=== PATIENT | female | born 1945 | race Caucasian/White ===

== ENCOUNTER 2016-08-13 12:32 | Outpatient (CLI) ==
--- NOTE | 2016-08-18 08:40 | MAMMO ---
EXAM: Bilateral digital screening mammogram History: Screening Comparison: Bilateral mammogram 01/06/2011 Findings: MLO and CC views of bilateral breasts demonstrate predominately fatty replaced breast par enchyma. There are no dominant masses, no suspicious microcalcifications and no architectural disto rtions Impression: Stable negative mammogram. Recommend followup routine screening mammography in 1 year. BIRADS 1
== END 2016-08-13 12:33 | disposition home or self-care (01) ==
LOC: RAD 12:32
PROVIDERS: ATTEND Internal Medicine
DX: Z12.31 Encounter for screening mammogram for malignant neoplasm of breast (principal)

== ENCOUNTER 2017-01-15 15:26 | Outpatient (CLI) | END 2017-01-15 15:27 | disposition home or self-care (01) | LOC: LAB 15:26 | PROVIDERS: ATTEND Internal Medicine Endocrinology, Diabetes & Metabolism | DX: E04.2 Nontoxic multinodular goiter (principal) | CPT/HCPCS: 36415; 84439; 84443 ==

== ENCOUNTER 2017-05-04 12:58 | Outpatient (CLI) ==
--- NOTE | 2017-05-04 14:08 | DEXA ---
EXAM: BONE DENSITOMETRY HISTORY: Screening for osteoporosis. Post menopausal. FINDINGS: Exam of the lumbar spine demonstrated a total bone mineral density of 0.961 g/cm2. T score is -1.8. Age-matched Z score is -0.7. Exam of the hips revealed a total mean bone mineral density of 0.966 g/cm2. Mean hip T score: -0.3 Mean hip age-matched Z score: 0.8 FRAX WHO Fracture Risk Assessment. Ten year probability of fracture (%). Major Osteoporotic Fracture 14.5% Hip Fracture 3.2%. IMPRESSION: 1. Values presented indicate osteopenia of the spine. 2. Values presented indicate osteopenia of the hips.
== END 2017-05-04 12:59 | disposition home or self-care (01) ==
LOC: RAD 12:58
PROVIDERS: ATTEND Internal Medicine
DX: Z78.0 Asymptomatic menopausal state (principal)

== ENCOUNTER 2018-07-02 14:34 | Outpatient (CLI) ==
--- NOTE | 2018-07-02 17:04 | MRI ---
EXAM: MRI brain without and with IV contrast. DATE: 02 July 2018. HISTORY: Dizziness and headache. TECHNIQUE: Sagittal T1W pre and postcontrast, axial T2W, axial FLAIR, axial T1W pre and postcontrast , axial DWI, coronal T1W postcontrast, and coronal T2W GRE sequences of the brain were obtained using 1.5 Michela magnet. CONTRAST: Omniscan - 15 ml IV. COMPARISON: CT head 02/03/2018. FINDINGS: The ventricles, sylvian fissures, some frontal lobe sulci, and CSF spaces overlying the man perior vertex of the brain are somewhat prominent due to involutional change. No midline shift, mehdi iation or abnormal extra-axial fluid collection is apparent. No acute infarct, hemorrhage or enhanci ng neoplasm is identified. No abnormal contrast enhancement is identified in the brain, meninges or dura. Small, confluent rim of T2W/FLAIR hyperintensity is observed in the white matter abutting the anterior horn and body of each lateral ventricle. Small number of 2-4 mm diameter, T2W/FLAIR bright foci are present within the frontal alvarez radiata and subcortical white matter bilaterally. The gra y - white matter differentiation is normal. No migration or diverticulation abnormality is identifie d. The amygdala, hippocampus, and parahippocampal gyri are similar bilaterally. The 7th/8th cranial nerve complexes, cerebellopontine angles, brainstem, and visible cervical spinal cord are normal. T here is no cerebellar tonsillar ectopia. The pituitary gland is normal in size and signal. Corpus c allosum is normal in size and configuration. Flow voids are present in the major intracranial arteri es and in the dural venous sinuses. No aneurysm, AVM or dural venous sinus thrombosis is apparent. Appearance of the lens of each eye suggests prior cataract surgery. No other orbit abnormality is id entified. The mastoid air cells are unremarkable. There are minor mucosal thickening and small post erior air-fluid levels in each maxillary sinus. Several ethmoid air cells are opacified. Small lymp h nodes are displayed in the upper neck bilaterally. No neck mass or lymphadenopathy is detected. N o calvarial neoplasm or acute fracture is evident. IMPRESSIONS: 1. No acute infarct, hemorrhage, enhancing neoplasm or hydrocephalus. 2. Mild cerebral leukomalacia - likely small vessel disease. 3. Minor, benign bilateral basal ganglia mineral deposition. 4. Mild central > peripheral cerebral atrophy.
--- NOTE | 2018-07-05 09:47 | MAMMO ---
EXAM: Bilateral digital screening mammogram (2-D and 3-D) History: Screening Comparison: Bilateral mammogram 08/13/2016 Findings: MLO and CC views of bilateral breasts demonstrate predominately fatty replaced breast pare nchyma. CAD was reviewed by the radiologist. Tomosynthesis was performed. There are no dominant ma sses, no suspicious microcalcifications and no architectural distortions Impression: Stable negative mammogram. Recommend followup routine screening mammography in 1 year. BIRADS 1, negative
== END 2018-07-02 14:35 | disposition home or self-care (01) ==
LOC: RAD 14:34
PROVIDERS: ATTEND Internal Medicine
DX: Z12.31 Encounter for screening mammogram for malignant neoplasm of breast (principal); R42 Dizziness and giddiness; R51 Headache

== ENCOUNTER 2020-01-13 13:17 | Observation (INO) ==
[2020-01-13] MEDS ORDERED: SODIUM CHLORIDE 500 ML IV STA (13:43)
[2020-01-13 13:57] LABS: BASOPHILS % (AUTO) 0.6 % (0.0-3.0); EOSINOPHILS # (AUTO) 0.3 K/ul (0.0-0.7); EOSINOPHILS % (AUTO) 3.9 % (0.0-7.0); HEMATOCRIT 36.4 % (37.0-47.0); HEMOGLOBIN 11.9 g/dl (12.0-16.0); IMMATURE GRANULOCYTE # (AUTO) 0.1 (0.0-1.0); IMMATURE GRANULOCYTE % (AUTO) 1.2 % (0.0-5.0); LYMPHOCYTES # (AUTO) 1.7 K/uL (0.60-3.4); LYMPHOCYTES % (AUTO) 24.2 (10.0-50.0); MEAN CORPUSCULAR HGB CONC 32.7 (31.8-35.4); MEAN CORPUSCULAR VOLUME 92.6 fl (81.0-99.0); MONOCYTES # (AUTO) 0.5 K/uL (0.4-2.0); MONOCYTES % (AUTO) 6.7 (0-10); NEUTROPHILS # (AUTO) 4.3 K/ul (2.0-6.9); NEUTROPHILS % (AUTO) 63.4 % (42.2-75.2); PLATELET COUNT 164 10^3/uL (140-440); RDW COEFFICIENT OF VARIATION 12.7 % (11.6-14.8); RED BLOOD COUNT 3.93 10^6/ul (4.20-5.40); WHITE BLOOD COUNT 6.85 K/ul (4.6-10.2)
[2020-01-13 14:10] LABS: ALBUMIN 3.93 g/dL (3.5-5.0); ALKALINE PHOSPHATASE 123.1 U/L (53-141); ASPARTATE AMINO TRANSFERASE 39.6 U/L (14-36); BILIRUBIN,TOTAL 0.33 mg/dL (0.2-1.3); BLOOD UREA NITROGEN 11.3 mg/dL (7-17); CALCIUM 8.82 mg/dL (8.4-10.2); CARBON DIOXIDE 32.6 mmol/L (22-30.0); CHLORIDE 102.1 mmol/L (98-107); CREATININE 0.76 mg/dL (0.60-1.30); GLUCOSE 77.4 mg/dL (74-106); SODIUM 136.9 mmol/L (134.5-145); TOTAL PROTEIN 7.12 g/dL (6.3-8.2)
--- NOTE | 2020-01-13 14:33 | DI ---
EXAM: Frontal chest HISTORY: Weakness FINDINGS: Compared to 09/05/2019. Heart size remains within normal limits as does general mediastin al contour. There are scattered calcifications suggesting old granulomatous disease. No acute infil trates are seen. No vascular congestion. There is no consolidation, visible pleural fluid or pneumo thorax. Bones reveal no acute fracture. IMPRESSION: No acute cardiopulmonary process.
--- NOTE | 2020-01-13 14:41 | CT ---
Exam: CT of the brain without intravenous contrast. Comparison: MRI performed 09/15/2019. Reason for exam: Weakness. FINDINGS: No acute intracranial hemorrhage, mass effect, ventricular dilatation, or territorial infa rction. No extraaxial fluid collections are seen. Mucosal thickening in the ethmoid sinuses. No de pressed calvarial fracture. Impression: No acute intracranial hemorrhage, mass effect or ventricular dilatation. Mucosal thickening in the ethmoid sinuses consistent with sinus disease.
[2020-01-13 14:53] LABS: BILIRUBIN,URINE Negative (NEGATIVE); CLARITY,URINE Clear (CLEAR); COLOR,URINE Yellow (YELLOW); GLUCOSE, URINE (UA) Negative (NEGATIVE); KETONES,URINE Negative (NEGATIVE); LEUKOCYTE ESTERASE ,URINE Negative (NEGATIVE); NITRITE,URINE Negative (NEGATIVE); URINE, BLOOD Negative (NEGATIVE); UROBILINOGEN,URINE 0.2 (0.2)
[2020-01-13] MEDS ORDERED: TYLENOL PO STA (15:17)
--- NOTE | 2020-01-13 15:23 | ED.PDOC ---
General ED Provider: Dr. CORY SCHWARZ MD Chief Complaint: Weakness Stated Complaint: left forearm injury x 1 hr. Time Seen by Physician: 13:25 Mode of Arrival: Ambulance Information Source: Patient and EMT Exam Limitations: No limitations Primary Care Provider: GEORGI CONTEH Nursing and Triage Documentation Reviewed and Agree: Yes Does patient meet sepsis criteria?: No System Inflammatory Response Syndrome: Not Applicable Sepsis Protocol: For patient's 13 years and over: Temp is 96.8 and below OR 101 and greater Pulse >90 BPM Resp >20/minute Acutely Altered Mental Status Are patient's symptoms suggestive of a new infection, such as: -Pneumonia -Skin, Soft Tissue -Endocarditis -UTI -Bone, Joint Infection -Implantable Device -Acute Abdominal Infection -Wound Infection -Meningitis -Blood Stream Catheter Infection -Unknown Musculoskeletal Complaint Exam Upper Extremity Complaint/Exam Location of Pain: Reports Left and Forearm Mechanism of Injury: Reports Trauma Onset/Duration: 1 hr Symptoms Are: Still present Timing: Constant Episodes Lasting: Hours Initial Severity: Mild Current Severity: Mild Location: Reports Discrete Character: Reports Dull and Aching Aggravating: Reports Movement Alleviating: Reports Rest and Ice Upper Extremity Findings: Present Laceration (skin tear, approx 2.5 cm.) NV Bundle Intact Distal to Injury: Yes Compartment Syndrome Risk Factors: Absent Paralysis, Pallor, Pulselessness and Paresthesias Differential Diagnoses: Contusion and Laceration Review of Systems Review Of Systems Constitutional: Reports No symptoms Eyes: Reports No symptoms Ears, Nose, Mouth, Throat: Reports No symptoms Respiratory: Reports No symptoms Cardiac: Reports No symptoms GI: Reports No symptoms : Reports No symptoms Musculoskeletal: Reports Other (left forearm pain and superficial laceration.) Skin: Reports No symptoms Neurological: Reports No symptoms Endocrine: Reports No symptoms Hematologic/Lymphatic: Reports No symptoms All Other Systems: Reviewed and Negative COUNT INCLUDES THE [facility] Medical History Dyslipidemia Thyroid cyst (Unknown) Family History FATHER Lung cancer Aortic valve replaced Mother Thyroid disorder Social History Smoking and tobacco status: Former smoker Substance use type: does not use Female Reproductive History Menstrual Hx Hysterectomy: No Hx Tubal Ligation: No Physical Exam Physical Exam Appearance: Reports Well-appearing and No pain distress Ill-appearing: None Pain Distress: None Eyes: Reports LEANDRO, EOMI and Conjunctiva clear ENT: Reports Ears normal, Nose normal and Oropharynx normal Neck: Supple Respiratory: Reports Airway patent, Breath sounds clear and Breath sounds equal Cardiovascular: Reports RRR, Pulses normal, No rub and No murmur GI/: Reports Soft, Nontender, No masses, Bowel sounds normal and No Organomegaly Musculoskeletal: Reports Normal strength, ROM intact, No edema, No calf tenderness and Other (lateral left forearm superficial 2.5 cm skin tear + minimally swollen, with no acute deformity. minimally tender.) Skin: Reports Warm, Dry and Normal color Neurological: Reports Sensation intact, Motor intact, Reflexes intact, Cranial nerves intact, Alert and Oriented Psychiatric: Reports Affect appropriate and Mood appropriate Procedures Laceration/Wound Repair left forearm dressing to 2.5 cm skin tear of lateral left forearm: Wound Description: Irregular and Skin tear Wound Length (cm): 2.5 Wound Width: 0.1 cm Wound Depth: superficial Wound Explored: Clean Wound Irrigated: Yes Wound Prep: Saline Anesthesia: Other (not necessary) Wound Margins: Flaps aligned Wound Repaired With: Steri-strips Sterile Dressing Applied?: Yes Splint Applied?: No Sling Applied?: No Re-Evaluation Re-Evaluation Time of Re-Evaluation: 14:41 Status: Improved Vital Signs Stable: Yes Pain Level: 0 Appearance: NAD Lungs: Clear Skin: Warm and Dry Neuro: Alert and Oriented X3 CV: RRR Critical Care Note Critical Care Note Total Time (mins): 10 Course Course Hematology/Chemistry: 01/13/20 13:53 01/13/20 13:53 Orders, Labs, Meds: Lab Review 01/13/20 01/13/20 01/13/20 13:53 13:53 14:40 WBC 6.85 RBC 3.93 L Hgb 11.9 L Hct 36.4 L MCV 92.6 MCH 30.3 MCHC 32.7 RDW Coeff of Isra 12.7 Plt Count 164 Immature Gran % (Auto) 1.2 Neut % (Auto) 63.4 Lymph % (Auto) 24.2 [place] % (Auto) 6.7 Eos % (Auto) 3.9 Baso % (Auto) 0.6 Neut # (Auto) 4.3 Lymph # (Auto) 1.7 [place] # (Auto) 0.5 Eos # (Auto) 0.3 Baso # (Auto) 0.0 Immature Gran # (Auto) 0.1 Sodium 136.9 Potassium 4.10 Chloride 102.1 Carbon Dioxide 32.6 H Anion Gap 6.30 BUN 11.3 Creatinine 0.76 Estimated GFR (MDRD) 75.00 BUN/Creatinine Ratio 14.86 Glucose 77.4 Calcium 8.82 Total Bilirubin 0.33 AST 39.6 H ALT 33.0 Alkaline Phosphatase 123.1 Troponin I < 0.012 Total Protein 7.12 Albumin 3.93 Globulin 3.19 Albumin/Globulin Ratio 1.23 Urine Color Yellow Urine Clarity Clear Urine pH 7.0 Ur Specific [place] 1.015 Urine Protein Negative Urine Glucose (UA) Negative Urine Ketones Negative Urine Blood Negative Urine Nitrite Negative Urine Bilirubin Negative Urine Urobilinogen 0.2 Ur Leukocyte Esterase Negative Orders Category Date Time Status EKG-(ED ONLY) Stat CARDIO 01/13/20 13:43 Completed ED IV/MEDIPORT/POWERPORT .ONCE EMERGENCY 01/13/20 13:43 Active CBC W/ AUTO DIFF Stat LAB 01/13/20 13:53 Completed COMPREHENSIVE METABOLIC PANEL Stat LAB 01/13/20 13:53 Completed TROPONIN I Stat LAB 01/13/20 13:53 Completed UA [URINALYSIS C & S IF INDICATED] Stat LAB 01/13/20 14:40 Completed 0.9 % Sodium Chloride [Saline Flush] MEDS 01/13/20 13:43 Active 1 syr IVF PRN PRN Acetaminophen [Tylenol] MEDS 01/13/20 15:17 Discontinued 650 mg PO ONCE STA Sodium Chloride 0.9% [Sodium Chloride] 500 ml MEDS 01/13/20 13:43 Discontinued IV BOLUS CHEST, 1V AP ONLY Stat RADS 01/13/20 13:[address] HEAD W/O CONTRAST Stat RADS 01/13/20 13:43 Completed Medications Generic Name Dose Route Start Last Admin Trade Name Freq PRN Reason Stop Dose Admin Sodium Chloride 1 syr 01/13/20 13:43 01/13/20 14:57 0.9% Sodium Chloride 10 Ml Disp.Syrin IVF 1 syr PRN PRN Administration To flush IV Discontinued Medications Generic Name Dose Route Start Last Admin Trade Name Freq PRN Reason Stop Dose Admin Acetaminophen 650 mg 01/13/20 15:17 Acetaminophen 325 Mg Tablet PO 01/13/20 15:18 ONCE STA Sodium Chloride 500 mls @ 500 mls/hr 01/13/20 13:43 01/13/20 14:57 Sodium Chloride IV 01/13/20 14:42 500 mls/hr BOLUS STA Administration Vital Signs: Temp Pulse Resp BP Pulse Ox 01/13/20 13:20 97.6 F 60 18 153/61 H 99 Discharge Plan Discharge Prescriptions: No Action pantoprazole 40 mg Tablet,Delayed Release (Dr/Ec) 40 mg PO DAILY RF: 0 pravastatin 20 mg Tablet 20 mg PO 1700 RF: 0 azelastine 137 mcg (0.1 %) Aerosol,[place] 1 spray INTRANASAL BID RF: 0 albuterol sulfate [Ventolin HFA] 90 mcg/actuation Hfa Aerosol Inhaler 2 puff INHALATION Q4-6H PRN (Reason: Bronchospasm) RF: 0 loratadine 10 mg Tablet 10 mg PO DAILY PRN (Reason: Allergic Symptoms) RF: 0 escitalopram oxalate [Lexapro] 5 mg Tablet 5 mg PO DAILY RF: 0 meclizine 25 mg Tablet 25 mg PO TID PRN (Reason: DIZZINESS) Qty: 50 RF: 0 ED Provider: CORY SCHWARZ
[2020-01-13] MEDS ORDERED: TYLENOL PO PRN (16:20)
[2020-01-13] MEDS ORDERED: CLARITIN PO PRN (16:21)
[2020-01-13] MEDS ORDERED: ANTIVERT PO PRN (16:21)
[2020-01-13] MEDS ORDERED: VENTOLIN HFA (PER PUFF-WITH SPACER) IH PRN (16:21)
[2020-01-13] MEDS ORDERED: PRAVACHOL PO SCH (17:00)
[2020-01-13 17:06] VITALS: BMI 34.0
[2020-01-13] MEDS: SODIUM CHLORIDE 1,000 ML IV SCH (18:04)
[2020-01-13] MEDS: LOVENOX SUBCUT SCH (18:04)
[2020-01-13] MEDS ORDERED: ASTELIN 0.1% NAS SCH (21:00)
[2020-01-13] MEDS ORDERED: ASPIRIN CHEWABLE PO SCH (21:00)
[2020-01-13] MEDS: ATIVAN PO SCH (22:08)
[2020-01-14 04:36] LABS: BASOPHILS # (AUTO) 0.1 K/uL (0-0.2); BASOPHILS % (AUTO) 0.6 % (0.0-3.0); EOSINOPHILS # (AUTO) 0.4 K/ul (0.0-0.7); EOSINOPHILS % (AUTO) 4.6 % (0.0-7.0); HEMATOCRIT 33.2 % (37.0-47.0); HEMOGLOBIN 10.8 g/dl (12.0-16.0); IMMATURE GRANULOCYTE % (AUTO) 0.3 % (0.0-5.0); LYMPHOCYTES % (AUTO) 38.3 (10.0-50.0); MEAN CORPUSCULAR HGB CONC 32.5 (31.8-35.4); MEAN CORPUSCULAR VOLUME 92.5 fl (81.0-99.0); MONOCYTES # (AUTO) 0.5 K/uL (0.4-2.0); MONOCYTES % (AUTO) 6.8 (0-10); NEUTROPHILS # (AUTO) 3.9 K/ul (2.0-6.9); NEUTROPHILS % (AUTO) 49.4 % (42.2-75.2); PLATELET COUNT 141 10^3/uL (140-440); RDW COEFFICIENT OF VARIATION 12.7 % (11.6-14.8); RED BLOOD COUNT 3.59 10^6/ul (4.20-5.40); WHITE BLOOD COUNT 7.84 K/ul (4.6-10.2)
[2020-01-14 04:49] LABS: ALANINE AMINOTRANSFERASE 27.3 U/L (0-35); ALBUMIN 3.25 g/dL (3.5-5.0); ALKALINE PHOSPHATASE 122.3 U/L (53-141); ASPARTATE AMINO TRANSFERASE 30.9 U/L (14-36); BILIRUBIN,TOTAL 0.23 mg/dL (0.2-1.3); BLOOD UREA NITROGEN 14.1 mg/dL (7-17); CALCIUM 8.4 mg/dL (8.4-10.2); CARBON DIOXIDE 28.1 mmol/L (22-30.0); CHLORIDE 106.8 mmol/L (98-107); CREATININE 0.76 mg/dL (0.60-1.30); GLUCOSE 93.6 mg/dL (74-106); SODIUM 137.2 mmol/L (134.5-145); TOTAL PROTEIN 6.02 g/dL (6.3-8.2)
[2020-01-14 05:28] VITALS: TEMP 98.1
[2020-01-14] MEDS: SODIUM CHLORIDE 1,000 ML IV SCH (05:28)
[2020-01-14] MEDS ORDERED: PROTONIX PO SCH (06:30)
[2020-01-14] MEDS ORDERED: LEXAPRO PO SCH ×3 (09:00)
[2020-01-14] MEDS ORDERED: NON-FORMULARY MEDICATION (Escitalopram Oxalate [Lexapro] 5 mg Tablet) PO SCH (09:00)
[2020-01-14] MEDS ORDERED: ASTELIN 0.1% NAS SCH (09:00)
[2020-01-14] MEDS: ATIVAN PO SCH (09:03)
[2020-01-14] MEDS: LOVENOX SUBCUT SCH (09:04)
[2020-01-14 09:56] VITALS: BP 114/68
--- NOTE | 2020-01-17 14:45 | SSS ---
DATE OF SERVICE: 01/14/2020 REASON FOR ADMISSION: Generalized weakness of both lower extremities. HISTORY OF PRESENT ILLNESS: 74 year old white female came to the emergency room with inability to get up because of numbness and weakness. She says that she had similar type of spells couple of them in the past that turned out to be nothing remarkable but this time she wants to be checked out. The patient was seen and examined in the ER by the ET attending and the CT scan of the head, chest x-ray, EKG, electrolytes and CBC with differential all of them found to be practically within normal limits. REVIEW OF SYSTEMS: CONSTITUTIONAL: No night sweats. Fatigue and weakness for last couple of days. No fever or chills. HEENT: Eyes: No visual changes. No eye pain. No eye discharge. ENT: No runny nose. No epistaxis. No sinus pain. No sore throat. No odynophagia. No ear pain. No congestion. RESPIRATORY: No cough, no congestion. No hemoptysis. Mild shortness of breath. CARDIOVASCULAR: No angina symptoms. No CHF symptoms. No atypical chest pain for CAD. No palpitations. No orthopnea. GASTROINTESTINAL: No abdominal pain. No nausea or vomiting. No diarrhea or constipation. No hematemesis. No hematochezia. GENITOURINARY: No dysuria. No hematuria. No obstructive symptoms. No discharge. No pain. No significant abnormal bleeding. MUSCULOSKELETAL: No musculoskeletal pain. No joint swelling. NEUROLOGICAL: Awake, alert, oriented to time, place and person. No headache. No neck pain. No syncope. No seizures. No dizziness. Numbness in both lower extremities was transient, left but has weakness to upper extremities, no pain. PSYCHIATRIC: Not anxious. No depression. No suicidal thoughts. No homicidal thoughts. SKIN: No rash. No lesions. No wounds. ENDOCRINE: No unexplained weight loss. No weight gain. HEMATOLOGIC/LYMPHATIC: No anemia. No purpura. No petechiae. No prolonged or excessive bleeding. No palpable lymph nodes. PAST HISTORY: The patient has chronic lung disease Asthma Reflux disease Dyslipidemia Dizziness Depression with anxiety syndrome PERSONAL/FAMILY HISTORY/SOCIAL HISTORY: The patient is single and lives by herself. Nonsmoker. No alcohol abuse and does all activity of daily living, intelligent. No alcohol abuse. No drug abuse. She drives care and is self sufficient. Makes all her decisions PHYSICAL EXAMINATION: GENERAL: The patient is oriented to time, place and person VITAL SIGNS: Temperature 98.1, pulse 60, respiratory rate 16, blood pressure 115/58 and pulse ox 93% on room air. HEENT: Head normocephalic, atraumatic. Eyes: Extraocular muscles are intact. Pupils are equal, round and reactive to light and accommodation. Ears: No lesions. Nose appeared normal. Throat: No exudate or erythema. NECK: Supple. No JVD, no carotid bruit. No lymphadenopathy or thyromegaly. LUNGS: Decreased breath sounds but clear to auscultation. Percussion note normal. Chest symmetrical. HEART: S1, S2, no S3. No murmurs. No cyanosis or clubbing. No ascites. Pulses: Dorsalis pedis and posterior tibial pulses +1 to +2 bilaterally. ABDOMEN: Soft. Nontender. Bowel sounds active. No CVA tenderness. No mass felt. EXTREMITIES: No edema. Full range of motion of all extremities, equal. NEUROLOGIC: No focal deficit. Cranial nerves II through XII are grossly intact. No headache, no double vision or headache. SKIN: Not dry. Intact. Turgor - Mildly on dehydration side. No rash LYMPHATIC: No palpable lymph nodes/no lymphedema. MUSCULOSKELETAL: Normal joints with no swelling. Muscle tone is normal. ALLERGIES: No known allergies MEDICATIONS: Albuterol PRN Azelastine Loratadine Pantoprazole Pravastatin Meclizine Aspirin Lexapro Lorazepam LABS/EKG'S/X-RAY/ECHO/ABG: Hgb 10.8, hct 33, WBC 7,800 normal differential, creatinine 0.7, BUN 14, potassium 3.8. These labs were from 07/03/2018. Sinus rhythm with no acute changes. Chest x-ray normal. CT scan of the head normal. PROGRESS NOTES: See EMR. DIAGNOSES: 1. Generalized weakness with maybe mild hydration with some dizziness could be vestibular dysfunction along with some mild dehydration with anxiety related issues. 2. Mild dehydration 3. Dyslipidemia 3. Bronchial asthma 4. Vestibular dysfunction 5. Depression with anxiety 6. Sinusitis 7. Dizziness related to vestibular dysfunction RECOMMENDATIONS/PLAN: 1. Give IV fluids 2. Telemetry 3. Watch for any change in the rhythm. Can't rule out cardiac arrhythmias 4. Neuro-checks 5. Watch for neurological status HOSPITAL COURSE: 74 year old white female hospitalized with generalized weakness and numbness of lower extremity. The patient was apprehensive of having stroke. The patient's lateralizing sign and complete neurological status was normal on the day of hospitalization and also on the follow day. The patient was up and about. Her appetite is normal. No nausea and no vomiting was noted. She did not have any symptoms of CHF or coronary insufficiency. The patient was reassured that electrolytes were normal. She was discharged in stable condition to be followed as an outpatient. Note the patient's neurological status with complete neurological examination was negative. The patient does not have any suicidal or homicidal tendencies. She has an anxiety that is well controlled with Ativan and Lexapro. The patient had declined any colonoscopy for chronic anemia or upper GI. Reflux symptoms controlled with Protonix. TIME SPENT: More than 70 minutes. MTDD
== END 2020-01-14 13:50 | disposition home or self-care (01) ==
LOC: ED 13:17 → MEDSURG B 13:17
PROVIDERS: ADMIT Internal Medicine; ATTEND Internal Medicine
DX: J44.9 Chronic obstructive pulmonary disease, unspecified; R20.2 Paresthesia of skin; J45.909 Unspecified asthma, uncomplicated; E86.0 Dehydration; E78.5 Hyperlipidemia, unspecified; Z51.81 Encounter for therapeutic drug level monitoring; F32.9 Major depressive disorder, single episode, unspecified; Z79.899 Other long term (current) drug therapy; M62.81 Muscle weakness (generalized); J32.9 Chronic sinusitis, unspecified; F41.9 Anxiety disorder, unspecified; S51.812A Laceration without foreign body of left forearm, initial encounter; H81.90 Unspecified disorder of vestibular function, unspecified ear